=== PATIENT | female | born 1955 | race Caucasian/White ===

== ENCOUNTER 2018-04-07 14:00 | Emergency (ER) | payer BC ==
[~2018-04-07] VITALS: Ht 165.1 cm; Wt 65.8 kg
--- NOTE | ~2018-04-07 | EKG ---
[place], [place] ELECTROCARDIOGRAM REPORT NAME: DIONNA YIN UNIT #: [id number] ROOM: DOCTOR: EPIPHANY DRAFT REPORT BIRTHDATE: [birth year] [place] Test Date: 2018-04-07 Test Time: 15:17:02 Pat Name: DIONNA YIN Department: Room: Gender: F Director Of Retail: EKG.[facility] : 1955 Requested By: LIZ JEREZ Order Number: [id number] Reading MD: Hola Luther MD Measurements Intervals [place] Rate: 96 P: 65 [place]: 165 QRS: -8 QRSD: 70 T: QT: 407 QTc: 515 Interpretive Statements Sinus rhythm Probable left atrial enlargement Poor precordial R-wave progression Prolonged QT interval Electronically Signed On 04-10-2018 18:37:19 PDT by Hola Luther MD CM:EKGRPT:ELECTROCARDIOGRAM REPORT [id number] LIZ JEREZ EPIPHANY DRAFT REPORT LIZ JEREZ
[2018-04-07 14:28] LABS: BASO % 0.1 % (0.0-1.0); EOS # 0.1 10*3/uL (0.0-0.4); EOS % 0.7 % (1.0-4.0); HEMATOCRIT 38.7 % (37.0-47.0); HEMOGLOBIN 12.9 g/dl (12.0-16.0); LYMPH # 1.7 10*3/uL (1.3-4.4); LYMPH % 19.3 % (27.0-41.0); MEAN CELL VOLUME 92.8 fl (81.0-99.0); MEAN CORPUSCULAR HGB 30.9 pg (27.0-31.0); MEAN CORPUSCULAR HGB CONC 33.3 g/dl (33.0-37.0); MONO # 0.7 10*3/uL (0.1-1.0); MONO % 8.3 % (3.0-9.0); NEUT # 6.2 10*3/uL (2.3-7.9); NEUT % 71.3 % (47.0-73.0); PLATELET COUNT AUTOMATED 260 10*3/uL (130-400); RED BLOOD COUNT 4.17 10*6/uL (4.10-5.10); WHITE BLOOD COUNT 8.7 10*3/uL (4.8-10.8)
[2018-04-07 14:38] LABS: ACT PARTIAL THROMBO TIME 22.4 SECONDS (20.8-31.5); INTERNATIONAL NORM RATIO 0.9 (2.0-3.5)
[2018-04-07 14:44] LABS: ALBUMIN 3.9 gm/dl (3.1-4.5); ALKALINE PHOSPHATASE 74 U/L (45-117); BUN 11 mg/dl (7-24); CHLORIDE 103 mmol/L (98-107); CREATININE 0.89 mg/dL (0.55-1.02); POTASSIUM 3.2 mmol/L (3.5-5.1); SGOT/AST 13 IU/L (3-35); SGPT/ALT 21 U/L (12-78); SODIUM 139 mmol/L (136-145); TOTAL PROTEIN 6.8 gm/dL (6.4-8.2)
[2018-04-07 14:45] LABS: TROPONIN I < 0.015 ng/ml (<0.045)
== END 2018-04-07 15:55 | disposition left against medical advice (07) ==
LOC: ED 14:00
PROVIDERS: Nurse Practitioner Family
DX: R42 Dizziness and giddiness (principal); R53.83 Other fatigue; R53.1 Weakness